=== PATIENT | male | born 1990 | race Caucasian/White ===

== ENCOUNTER 2024-09-08 12:36 | Emergency (ER) | payer OTHER, SELFPAY ==
[2024-09-08 12:39] VITALS: BP 125/97; PULSE 102; RESP 16; TEMP 36.8; O2SAT 98; BMI 20.9
--- NOTE | 2024-09-08 15:10 | EX.ED.DYSGE1 ---
HPI <JEANE Warren - Last Filed: 09/08/24 17:43> History of Present Illness Chief Complaint: Lower Extremity Injury Narrative Narrative: Patient presenting today due to a positive DVT study that was performed today at the hospital. He had a left ACL reconstruction performed by Dr. Peña 2.5 weeks ago. He had a follow-up appointment today in the office, he reported having left calf pain that started yesterday evening. He was then sent here to have an ultrasound performed which was positive for a DVT. He denies any history of DVT, he denies chest pain and shortness of breath. He denies any chronic medical conditions. PFSH <JEANE Warren - Last Filed: 09/08/24 17:43> [facility] [place] Home Medications ?Medication ?Instructions ?Recorded ?Last Taken ?Type apixaban 5 mg (74 tabs) tablets in See Rx Instructions PO .COMPLEX 09/08/24 Unknown Rx a dose pack (Eliquis DVT-PE Treat #74 tabs 30D Start) Allergy/AdvReac Type Severity Reaction Status Date / Time No Known Allergies Allergy Verified 09/08/24 12:39 Social History Smoking Status: Never smoker ROS <JEANE Warren - Last Filed: 09/08/24 17:43> ROS ED Constitutional Constitutional ED: Denies chills or fever(s) Cardiovascular Cardiovascular: Denies chest pain Respiratory/Chest Respiratory/Chest: Denies dyspnea Musculoskeletal Musculoskeletal: Reports myalgias Integumentary Denies rash Neurologic Neurologic: Denies paresthesias EXAM <JEANE Warren - Last Filed: 09/08/24 17:43> Physical Exam Const Vital Signs: 09/08/24 12:39 Temperature 98.2 F Temperature Source Oral Pulse Rate 102 H Respiratory Rate 16 Blood Pressure 125/97 H Blood Pressure Mean 106 Pulse Ox 98 Oxygen Delivery Method Room Air Positive well nourished, well developed and no apparent distress General Appearance ED: well developed HEENT Reports normocephalic and head/scalp atraumatic Mouth ED: Yes moist mucous membranes normal Eyes PERRL and EOMs intact bilaterally Neck full ROM and supple Chest Wall inspection of chest normal Resp normal respiratory effort and clear to auscultation bilaterally Cardio regular rate and regular rhythm GI soft to palpation, non-tender, non-distended and no masses Back/Spine normal ROM and normal to inspection Extremity normal to inspection and full ROM Extremity Narrative: No asymmetric edema, no palpable cord to the left lower extremity, no erythema. Pain to palpation to the left calf. Left DP pulse 2+, good cap refill, sensation intact. Neuro oriented x3, CN's II-XII intact bilaterally, moves all extremities, no focal motor deficits and no sensory deficits noted Sensorium / Orientation: awake and alert Psych mental status grossly normal and thought process normal Skin no rashes or lesions noted and no wounds <Dr. Parag Hernandez MD - Last Filed: 09/08/24 15:55> Physical Exam Const Vital Signs: 09/08/24 12:39 Temperature 98.2 F Temperature Source Oral Pulse Rate 102 H Respiratory Rate 16 Blood Pressure 125/97 H Blood Pressure Mean 106 Pulse Ox 98 Oxygen Delivery Method Room Air [facility] <JEANE Warren - Last Filed: 09/08/24 17:43> [facility] Narrative Medical decision making narrative: Patient presenting today after having a positive venous duplex ultrasound to the left lower extremity this afternoon. The preliminary report shows a acute DVT in the left T/P trunk, Post tib V, peroneal V, and soleus vein. He is neurovascularly intact, he has good distal pulses and sensation. He does not have any swelling or erythema on exam. Compartments are soft in the left leg. He has no chest pain or shortness of breath. He otherwise is well-appearing and in no acute distress. Patient was started on Eliquis with first dose here. Recommended he follow-up with his PCP, he will be discharged home in stable condition. <Dr. Parag Hernandez MD - Last Filed: 09/08/24 15:55> [facility] History & Record Review Additional record(s) reviewed:: Other (Outpatient DVT study today showing acute DVT in the left TP trunk, posterior tibial vein, peroneal vein, and soleus vein.) Treatment and Re-Evaluation Comments:: I have personally performed a face to face assessment of the patient and have reviewed the SHASHANK Note. I performed a substantive portion of the visit including all aspects of the following. My moeller findings include: History is left knee ACL reconstruction 2.5 weeks ago, the knee is doing well. Some mild pain in his left proximal calf for 1 or 2 days, sent for an outpatient ultrasound that showed a DVT. Denies any chest pain, shortness of breath, or limitations with regards to his leg right now. Exam is mild tenderness in the proximal left calf. All compartments soft and nondistended. No palpable cords. No erythema. Neurovascular intact distally good range of motion of the knee without any signs of infection there. Medical Decison Making patient is reasonable candidate for outpatient treatment and follow-up, we will start him on Eliquis now and a prescription to start in the morning. Other additions or changes: [None] Discharge Plan Triage Chief Complaint: Lower Extremity Injury ED Midlevel Provider: Leta Marrero ED Provider: Parag Hernandez Dx/Rx/DC Orders Clinical Impression: Acute deep vein thrombosis (DVT) of left lower extremity Instructions: ED Deep Vein Thrombosis (DVT) Prescriptions: New Eliquis DVT-PE Treat 30D Start 5 mg (74 tabs) tablets,dose pack See Rx Instructions .ROUTE .COMPLEX Qty: 74 0RF Rx Instructions: orally per package directions Primary Care Provider: Jacob Beach Referrals: Jacob Beach MD [Primary Care Provider] - 1 Week Activity Restrictions/Additional Instructions: Follow-up with your PCP. Please take the Eliquis as prescribed. Return for any worsening symptoms. Print Language: Croatian Disposition Disposition: Home, Self Care Discharge Date/Time: 09/08/24 15:59
[2024-09-08] MEDS: APIXABAN 5 MG TABLET 10 MG PO (15:55)
== END 2024-09-08 15:59 | disposition home or self-care (01) ==
PROVIDERS: Emergency Provider Emergency Medicine; PCP Family Medicine; Visit Provider Emergency Medicine
DX: I82.442 Acute embolism and thrombosis of left tibial vein (principal); I82.452 Acute embolism and thrombosis of left peroneal vein; I82.462 Acute embolism and thrombosis of left calf muscular vein
CPT/HCPCS: 99282

== ENCOUNTER → 2024-09-08 | Outpatient (CLI) | payer SELFPAY, OTHER ==
--- NOTE | 2024-09-08 11:45 | VDLE_ITS ---
Reason For Study: Left leg swelling RIGHT LEFT CFV is compressible, spontaneous, phasic, GSV is normal. competent and demonstrates normal CFV is compressible, spontaneous, phasic, augmentation. competent, and demonstrates normal Procedure augmentation. This is a venous duplex using B-mode, color FV is compressible, spontaneous, phasic, flow and spectral Doppler. competent and demonstrates normal Exam performed in department. augmentation. A preliminary report was called and/or faxed POP V is compressible, spontaneous, phasic, to [facility]. No current PCP to competent and demonstrates normal follow up with. augmentation. Acute deep vein thrombosis is noted in the left T/P Trunk, PTV, PeroV and Soleus V. It is dilated and NONCOMPRESSIBLE. VL/Venous Duplex US, Unilateral Interpretation Summary Acute deep vein thrombosis is noted in the left tibio-peroneal trunk vein, post erior tibial vein, peroneal vein, soleus vein. Ordering Physician: Reggie Peña Performed By: Marlin Quinn RVT
== END | disposition home or self-care (01) ==
PROVIDERS: Referring Provider Orthopaedic Surgery; Visit Provider Orthopaedic Surgery
DX: R22.42 Localized swelling, mass and lump, left lower limb (principal)
CPT/HCPCS: 93971

== ENCOUNTER → 2024-11-28 | Outpatient (CLI) | payer SELFPAY, OTHER ==
--- NOTE | 2024-11-28 08:43 | VDLE_ITS ---
Reason For Study Reason For Study: Left leg pain RIGHT LEFT CFV is compressible, spontaneous, phasic, competent GSV is normal. and demonstrates normal augmentation. CFV is compressible, spontaneous, phasic, competent, Procedure and demonstrates normal augmentation. This is a venous duplex using B-mode, color flow and FV is compressible, spontaneous, phasic, competent spectral Doppler. and demonstrates normal augmentation. Exam performed in department. POP V is compressible, spontaneous, phasic, competent Compared to 09/08/2024. and demonstrates normal augmentation. A preliminary report was called and/or faxed to T/Blade Trunk is compressible. Yong. PTV is compressible. LT PerV is compressible. VL/Venous Duplex US, Unilateral Interpretation Summary Deep veins of the left lower extremity are patent and compressible segmentally. There is no evidence of left lower extremity deep vein thrombosis. Valvular competence appears intact within the p roximal deep venous system on the left . The left great saphenous vein appears patent and compressible segmentally. The right common femoral vein is patent and compressible . Ordering Physician: Jacob Beach Referring Physician: Jacob Beach Performed By: Marlin Quinn RVT
== END | disposition home or self-care (01) ==
PROVIDERS: PCP Family Medicine; Referring Provider Family Medicine; Visit Provider Family Medicine
DX: Z86.718 Personal history of other venous thrombosis and embolism (principal)
CPT/HCPCS: 93971

== ENCOUNTER 2025-01-09 14:39 | Outpatient (CLI) | payer SELFPAY, OTHER ==
--- NOTE | 2025-01-09 14:41 | VDLE_ITS ---
Reason For Study Reason For Study: HX LLE DVT RIGHT LEFT FV is compressible, spontaneous, phasic, competent GSV is normal. and demonstrates normal augmentation. CFV is compressible, spontaneous, phasic, competent, Procedure and demonstrates normal augmentation. This is a venous duplex using B-mode, color flow and FV is compressible, spontaneous, phasic, competent spectral Doppler. and demonstrates normal augmentation. Exam performed in department. POP V is compressible, spontaneous, phasic, competent The exam was diagnostic. and demonstrates normal augmentation. A preliminary report was called and/or faxed to T/Blade Trunk is compressible. Abiel's office. PTV is compressible. LT PerV is compressible. VL/Venous Duplex US, Unilateral Interpretation Summary Deep veins of the left lower extremity are patent and compressible segmentally. There is no evidence of left lower extremity deep vein thrombosis. The left great saphenous vein appears patent an d compressible segmentally. Ordering Physician: Jacob Beach Referring Physician: Jacob Beach Performed By: Kapil Reza RVT
== END 2025-01-09 23:59 | disposition home or self-care (01) ==
LOC: CVS 14:39
PROVIDERS: PCP Family Medicine; Referring Provider Family Medicine; Visit Provider Family Medicine
DX: I82.402 Acute embolism and thrombosis of unspecified deep veins of left lower extremity (principal); Z86.718 Personal history of other venous thrombosis and embolism
CPT/HCPCS: 93971